=== PATIENT | male | born 1935 | race Caucasian/White ===

== ENCOUNTER 2017-03-01 01:10 | Inpatient (IN) | payer MEDICARE, OTHER ==
[~2017-03-01 01:10] MED LIST: ALPRAZOLAM0.25 M3 PO; ALPRAZOLAM0.25 MG PO; ASPIR 8181 M1 PO; ASPIR 8181 MG PO; COREG12.5 M1 PO; COREG12.5 MG PO; COZAAR25 M1 PO; CPAP; FLOMAX0.4 M1 PO; FLOMAX0.4 MG PO; FLONASE16 G2; HYZAAR 100-12.51 TAB; LEVAQUIN500 M1 PO; LIPITOR40 MG; LISINOPRIL10 MG PO; LISINOPRIL20 M1 PO; MULTI-VITAMIN1 EAC3 PO; MULTI-VITAMIN1 TAB PO; NITROSTAT0.4 MG SL; NITROSTAT0.4 MG/TAB SL; NORCO 5-325 TA1 EACH PO; OMEGA 3-6-9 11200 MG PO; OMEPRAZOLE20 M3 PO; OMEPRAZOLE20 MG PO; SPIRONOLACTONE25 M1 PO; SPIRONOLACTONE25 M2 PO; SYMBICORT 80-41 PUFF INH; TOPROL XL25 MG; TRICOR145 M1; TRICOR54 MG PO; ZOCOR40 M1 PO; ZOCOR40 MG PO; ZOFRAN4 M2 PO
[2017-03-01] MEDS ORDERED: XANAX0.25 M1 PO (01:41)
[2017-03-01] MEDS ORDERED: COREG6.25 M1 PO (01:46)
[2017-03-01] MEDS ORDERED: CLARITIN10 M8 PO (01:47)
[2017-03-01] MEDS ORDERED: VENTOLIN HFA18 G2 PO (01:48)
[2017-03-01] MEDS ORDERED: FLONASE ALLERG9.9 ML (01:49)
[2017-03-01 01:51] LABS: BASO % 0.2 % (0-2); EOS % 0.4 % (0-7); HCT-HEMATOCRIT 27.7 % (36.0-53.5); HGB-HEMOGLOBIN 8.9 gm/dl (13.5-17.0); IMMATURE GRANULOCYTES ABSOLUTE 0.01 tho/cmm (0-0.03); IMMATURE GRANULOCYTES PERCENT 0.2 % (0-0.3); LYMPH % 27.3 % (20-45); LYMPH ABSOLUTE COUNT 1.3 tho/cmm (0.8-4.5); MCHC MEAN CORPUSCULAR HGB CONC 32.1 % (32.0-36.0); MCV (MEAN CELL VOLUME) 93.3 fl (82.0-96.0); MEAN PLATELET VOLUME 10.2 cmc (9.4-12.4); MONO % 23.9 % (0-12); MONOCYTE ABSOLUTE COUNT 1.1 tho/cmm (0.0-1.2); NEUTROPHIL ABSOLUTE COUNT 2.3 tho/cmm (1.6-8.0); NEUTROPHIL-AUTOMATED 2.3 tho/cmm (1.6-8.0); RED BLOOD COUNT 2.97 mil/cmm (4.40-5.70); RED CELL DISTRIBUTION WIDTH 21.4 % (12.4-16.4); WHITE BLOOD COUNT 4.7 tho/cmm (4.0-10.0)
[2017-03-01 01:53] LABS: PLATELET COUNT 49 tho/cmm (150-450)
[2017-03-01 02:07] LABS: ANION GAP 10 mmol/L (0-20); BLOOD UREA NITROGEN 17 mg/dl (6-24); CALCIUM 8.5 mg/dl (8.5-10.5); CARBON DIOXIDE-VENOUS 29 mmol/L (22-32); CHLORIDE 100 mmol/l (96-110); GLUCOSE 154 mg/dL (70-110); SODIUM 135 mmol/L (135-145); eGFR VALUE FOR BLACK 81 mL/Min
[2017-03-01 06:25] LABS: PROTHROMBIN TIME 11.9 SECONDS (9.0-13.6)
[2017-03-01 06:27] LABS: PLATELET COUNT 76 tho/cmm (150-450)
[2017-03-01 07:40] LABS: URINE BILIRUBIN NEGATIVE (NEG); URINE BLOOD NEGATIVE (NEG); URINE GLUCOSE (UA) NEGATIVE (NEG); URINE KETONE NEGATIVE (NEG); URINE LEUKOCYTE ESTERASE NEGATIVE (NEG); URINE NITRITE NEGATIVE (NEG); URINE PROTEIN NEGATIVE (NEG)
[2017-03-01 07:42] LABS: URINE APPEARANCE HAZY; URINE COLOR YELLOW
[2017-03-02 04:36] LABS: BASO % 0.2 % (0-2); EOS % 0.7 % (0-7); HCT-HEMATOCRIT 27.7 % (36.0-53.5); HGB-HEMOGLOBIN 8.7 gm/dl (13.5-17.0); IMMATURE GRANULOCYTES ABSOLUTE 0.01 tho/cmm (0-0.03); IMMATURE GRANULOCYTES PERCENT 0.2 % (0-0.3); LYMPH % 27.2 % (20-45); LYMPH ABSOLUTE COUNT 1.2 tho/cmm (0.8-4.5); MCH (MEAN CORPUSCULAR HGB) 29.5 pg (28.0-32.0); MCHC MEAN CORPUSCULAR HGB CONC 31.4 % (32.0-36.0); MCV (MEAN CELL VOLUME) 93.9 fl (82.0-96.0); MEAN PLATELET VOLUME 10.4 cmc (9.4-12.4); MONO % 23.6 % (0-12); MONOCYTE ABSOLUTE COUNT 1.1 tho/cmm (0.0-1.2); NEUTROPHIL ABSOLUTE COUNT 2.2 tho/cmm (1.6-8.0); NEUTROPHIL-AUTOMATED 2.2 tho/cmm (1.6-8.0); NEUTROPHILS % 48.1 % (40-80); PLATELET COUNT 77 tho/cmm (150-450); RED BLOOD COUNT 2.95 mil/cmm (4.40-5.70); RED CELL DISTRIBUTION WIDTH 22.5 % (12.4-16.4); WHITE BLOOD COUNT 4.5 tho/cmm (4.0-10.0)
[2017-05-26] MEDS ORDERED: FLONASE ALLERG9.9 ML (12:55)
[2017-05-26] MEDS ORDERED: CPAP (13:12)
[2017-05-26] MEDS ORDERED: OXYGEN (13:12)
[2017-05-26] MEDS ORDERED: OMEPRAZOLE20 M3 PO (13:15)
[2017-07-04] MEDS ORDERED: LIPITOR20 M1 PO (15:03)
[2017-07-04] MEDS ORDERED: TESSALON PERLE100 M1 PO (15:04)
[2017-07-04] MEDS ORDERED: HYDROCHLOROTHIA25 M1 PO (15:05)
== END 2017-03-02 15:15 | DRG 85 ==
LOC: EDMED 01:10 → EMR2 02:50 → CCU 05:09 → 5EB 19:40
PROVIDERS: Emergency Medicine; Registered Nurse; ADMIT Internal Medicine
PROC: 30233N1 Transfusion of Nonautologous Red Blood Cells into Peripheral Vein, Percutaneous Approach (ICD-10-PCS; principal; 2017-03-01)
DX: S06.6X0A Traumatic subarachnoid hemorrhage without loss of consciousness, initial encounter (principal); D61.810 Antineoplastic chemotherapy induced pancytopenia; D69.6 Thrombocytopenia, unspecified; J44.9 Chronic obstructive pulmonary disease, unspecified; I25.10 Atherosclerotic heart disease of native coronary artery without angina pectoris; R73.9 Hyperglycemia, unspecified; I10 Essential (primary) hypertension; W19.XXXA Unspecified fall, initial encounter; S01.312A Laceration without foreign body of left ear, initial encounter; R09.02 Hypoxemia; Z85.118 Personal history of other malignant neoplasm of bronchus and lung; Z95.810 Presence of automatic (implantable) cardiac defibrillator; Y92.9 Unspecified place or not applicable; Z98.42 Cataract extraction status, left eye; Z95.5 Presence of coronary angioplasty implant and graft; Z87.891 Personal history of nicotine dependence; Z79.82 Long term (current) use of aspirin
CPT/HCPCS: J7030; P9031; P9033

== ENCOUNTER 2017-03-25 18:27 | Emergency (ER) | payer MEDICARE, OTHER ==
[~2017-03-25 18:27] MED LIST changes: +CLARITIN10 M8 PO; +COREG6.25 M1 PO; +FLONASE ALLERG9.9 ML; +VENTOLIN HFA18 G2 PO; +XANAX0.25 M1 PO
[2017-03-25] MEDS ORDERED: ZOFRAN4 M2 PO (19:08)
[2017-03-25] MEDS ORDERED: LEVOFLOXACIN500 M1 PO (19:08)
[2017-05-26] MEDS ORDERED: FLONASE ALLERG9.9 ML (12:55)
[2017-05-26] MEDS ORDERED: CPAP (13:12)
[2017-05-26] MEDS ORDERED: OXYGEN (13:12)
[2017-05-26] MEDS ORDERED: OMEPRAZOLE20 M3 PO (13:15)
[2017-07-04] MEDS ORDERED: LIPITOR20 M1 PO (15:03)
[2017-07-04] MEDS ORDERED: TESSALON PERLE100 M1 PO (15:04)
[2017-07-04] MEDS ORDERED: HYDROCHLOROTHIA25 M1 PO (15:05)
== END 2017-03-25 21:20 ==
LOC: EDMED 18:27
PROC: 3E023BZ Introduction of Anesthetic Agent into Muscle, Percutaneous Approach (ICD-10-PCS; principal; 2017-03-25)
DX: S68.022A Partial traumatic metacarpophalangeal amputation of left thumb, initial encounter (principal); I25.10 Atherosclerotic heart disease of native coronary artery without angina pectoris; I10 Essential (primary) hypertension; J44.9 Chronic obstructive pulmonary disease, unspecified; E78.5 Hyperlipidemia, unspecified; C34.90 Malignant neoplasm of unspecified part of unspecified bronchus or lung; Z87.891 Personal history of nicotine dependence; Z79.82 Long term (current) use of aspirin; Z79.899 Other long term (current) drug therapy; W29.8XXA Contact with other powered hand tools and household machinery, initial encounter; Y92.019 Unspecified place in single-family (private) house as the place of occurrence of the external cause